=== PATIENT | male | born 1955 | race Caucasian/White ===

== ENCOUNTER → 2021-11-26 09:31 | Outpatient (CLI) | payer MEDICARE, SELFPAY ==
[2021-11-26 19:40] LABS: Add Manual Diff / Slide Review NO; Basophils Absolute Auto 0 /uL (0-100); Basophils Percent Auto 0.8 % (0-2); Eosinophils Absolute Auto 500 /uL (0-450); Eosinophils Percent Auto 11.3 % (2-4); Hematocrit 42.3 % (41-53); Hemoglobin 14.6 g/dL (13.5-17.5); Lymphocytes Absolute Auto 1500 /uL (1100-4500); Lymphocytes Percent Auto 30.2 % (25-40); Mean Corpuscular HGB Conc 34.4 % (30-36); Mean Corpuscular Hemoglobin 31.9 PG (26-34); Mean Corpuscular Volume 92.5 fL (80-100); Monocytes Absolute Auto 500 /uL (0-900); Monocytes Percent Auto 10.2 % (3-14); Neutrophils Absolute Auto 2300 /uL (1500-7000); Neutrophils Percent Auto 47.5 % (50-75); Platelet Count 183 X10^3/uL (150-400); Red Blood Cell Count 4.57 X10^6/uL (4.5-5.9); Red Cell Distribution Width 14.3 % (11.6-14.8); White Blood Cell Count 4.8 X10^3/uL (4.5-11.0)
[2021-11-26 19:43] LABS: Alanine Aminotransferase 19 IU/L (<50); Albumin 4.1 g/dL (3.5-5.0); Albumin Globulin Ratio 1.5 (1.0-2.8); Alkaline Phosphatase 42 U/L (38-126); Aspartate Aminotransferase 30 IU/L (17-59); BUN Creatinine Ratio 14.4 (6-22); Bilirubin Total 1.2 mg/dL (0.2-1.3); Blood Urea Nitrogen 14 mg/dL (9-20); Calcium 9.8 mg/dL (8.4-10.2); Carbon Dioxide 32 mmol/L (22-32); Chloride 104 mmol/L (98-107); Cholesterol 263 mg/dL (140-199); Estimated Glomerular Filt Rate > 60.0 mL/min (>60); Globulin 2.7 g/dL (1.7-4.1); Glucose 103 mg/dL (80-110); HDL Cholesterol 84 mg/dL (40-60); LDL Cholesterol Calculated 165 mg/dL (<100); Sodium 138 mmol/L (137-145); Total Protein 6.8 g/dL (6.3-8.2); Triglycerides 72 mg/dL (35-150)
[2021-11-26 20:31] LABS: HEMOLYSIS < 15 (0-50); Prostate Specific Antigen Scrn 1.87 ng/mL (0.1-4.0)
== END ==
PROVIDERS: PCP Family Medicine; Visit Provider Family Medicine
DX: E78.5 Hyperlipidemia, unspecified (principal); G43.909 Migraine, unspecified, not intractable, without status migrainosus; Z00.00 Encounter for general adult medical examination without abnormal findings; Z12.5 Encounter for screening for malignant neoplasm of prostate
CPT/HCPCS: 80053; 80061; 85025; G0103

== ENCOUNTER → 2022-08-18 07:43 | Outpatient (CLI) | payer MEDICARE, SELFPAY ==
[2022-08-18 21:22] LABS: COVID19 - ORCAS (NP or Nasal) Negative (Negative)
== END ==
PROVIDERS: PCP Family Medicine; Visit Provider Physician Assistant Medical
DX: Z01.812 Encounter for preprocedural laboratory examination (principal); Z20.822 Contact with and (suspected) exposure to COVID-19
CPT/HCPCS: C9803; U0003

== ENCOUNTER 2022-08-19 10:53 | Day surgery (SDC) | payer MEDICARE, SELFPAY ==
--- NOTE | 2022-08-19 | PATH_ITS ---
[facility] Accession Number: [id number] . 01 Material submitted: . PART A: colon - ASCENDING COLON POLYP PART B: colon - TRANSVERSE COLON POLYPS PART C: colon - DESCENDING COLON POLYPS PART D: sigmoid colon - SIGMOID COLON POYLP PART E: rectum - RECTAL POLYP . 01 Diagnosis: A. Ascending Colon Polyp, Biopsy: Tubular adenoma. . B. Transverse Colon Polyps, Biopsies: Tubular adenomas. . C. Descending Colon Polyps, Biopsies: Tubular adenomas. . D. Sigmoid Colon Polyp, Biopsy: Tubular adenoma. . E. Rectal Polyp, Biopsy: Tubular adenoma. [facility] 08/24/2022 1204 Local . 01 Electronically signed: . John Plummer MD, PhD, Pathologist NPI- [id number] . 01 Gross description: . Part A: ASCENDING COLON POLYP: Received in formalin are multiple fragment(s) of rodriguez, soft tissue measuring 0.1 x 0.1 x 0.1 cm to 0.2 x 0.2 x 0.2 cm submitted entirely in 1 cassette(s) Part B: TRANSVERSE COLON POLYPS: Received in formalin are multiple fragment(s) of rodriguez, soft tissue measuring 0.1 x 0.1 x 0.1 cm to 0.4 x 0.2 x 0.1 cm submitted entirely in 1 cassette(s) Part C: DESCENDING COLON POLYPS: Received in formalin are 4 fragment(s) of rodriguez, soft tissue measuring 0.1 x 0.1 x 0.1 cm to 0.3 x 0.3 x 0.2 cm submitted entirely in 1 cassette(s) Part D: SIGMOID COLON POYLP: Received in formalin is 1 fragment(s) of rodriguez, soft tissue measuring 0.7 x 0.4 x 0.3 cm submitted entirely in 1 cassette(s) Part E: RECTAL POLYP: Received in formalin are 2 fragment(s) of rodriguez, soft tissue measuring 0.1 x 0.1 x 0.1 cm in aggregate submitted entirely in 1 cassette(s) /SERGIO 08/23/2022 1931 Local . 01 Pathologist provided ICD-10: D12.2, D12.3, D12.4, D12.5, D12.8 . 01 CPT . 868010, 631800, 310562, [id number], [id number] Specimen Comment: A courtesy copy of this report has been sent to [phone] Performed at: 01 [facility] [address] [address], [place], [place] [id number] MD Rip Romero MD Phone: [phone]
[2022-08-19] MEDS: LACTATED RINGERS 1,000 ML 42 ML IV (11:06)
[2022-08-19 11:22] VITALS: BP 137/89; PULSE 84; RESP 16; TEMP 36.3; O2SAT 99; BMI 25.7
--- NOTE | 2022-08-19 11:55 | PM.HP.1 ---
History of Present Illness History of Present Illness Chief complaint: SCREENING COLONOSCOPY Narrative: Mr. Luz presents today for a screening colonoscopy. He has been pretty healthy but it has been 13 years since his last colonoscopy. He is unsure but he thinks there might have been some polyps but he thinks it was a 10 year follow-up was recommended nonetheless he admits he is overdue. He has no family history of colon cancer and no alarming symptoms. Patient History Medical History (Updated 08/19/22 @ 11:56 by Kavita Lara MD) Cataracts, bilateral Chicken pox Encounter for general adult medical examination w/o abnormal findings Encounter for hepatitis C screening test for low risk patient Encounter for well adult exam without abnormal findings Family history of abdominal aortic aneurysm (AAA) Measles Mumps Screening for prostate cancer Seasonal allergies Surgical History (Updated 11/25/21 @ 21:57 by Kenisha Schulz) Anesthesia History of cataract removal with insertion of prosthetic lens (~2017) History of tonsillectomy (~1960) Family & Social History Family History (Updated 11/25/21 @ 21:58 by Kneisha Schulz) Father History of heart disease Mother Diverticulitis Grandfather History of heart disease Social History: household members spouse Tobacco & Substance use: Smoking Status Never smoker alcohol intake frequency a few times a week Substance Use Type does not use Meds Home Medications and Allergies Home Medications Medication Instructions Recorded Confirmed Type sumatriptan succinate 100 mg tablet See Rx Instructions .Route 02/14/22 08/19/22 Rx .COMPLEX #14 tabs Allergies Allergy/AdvReac Type Severity Reaction Status Date / Time No Known Drug Allergies Allergy Verified 08/19/22 11:19 Exam Vital Signs (past 8 hours): - 08/19/22 11:22 Temperature 97.3 F L Pulse Rate 84 Respiratory Rate 16 Blood Pressure 137/89 Pulse Oximetry 99 Oxygen Delivery Method Room Air Oxygen Delivery Method Room Air Const General: cooperative, healthy appearing and comfortable Eyes General: appearance normal, both eyes and all related structures Resp Effort & Inspection: normal respiratory effort and able to speak in complete sentences Cardio Pulses: radial pulses present GI Palpation: soft and No tender Assessment & Plan Assessment and plan (1) Screen for colon cancer: Status: Acute Plan I discussed the risks and benefits and alternatives of a screening colonoscopy including but not limited to perforation of the colon and incomplete colonoscopy with Mr. Luz he understands he would like to proceed. Time Spent With Patient Critical Care time: I spent a total of [] minutes of critical care time on this patient's care today; this time is exclusive of procedural time.
[2022-08-19 14:00] VITALS: BP 107/71; PULSE 65; RESP 16; TEMP 36.2; O2SAT 100
[2022-08-19 14:05] VITALS: BP 107/73; PULSE 72; RESP 16; O2SAT 100
--- NOTE | 2022-08-19 14:11 | PM.OP.COLON ---
Procedure & Clinicians Study performed: Screening colonoscopy Same procedure as scheduled: Yes Indications: Screening, history of polyps. Surgeon: Kavita Lara Procedure Notes Procedure in detail: Patient was taken to the endoscopy suite and placed in a left lateral decubitus position digital rectal exam was performed. Colonoscope was introduced and advanced to the cecum. A photograph was taken of the appendiceal orifice. And withdrawal time was prolonged due to 7 biopsies. There was 1 small less than 1 cm polyp in the ascending colon which was biopsied and sent as specimen. In the transverse colon as I withdrawal I encountered 3 separate small polyps, each of which was biopsied and sent together as 1 specimen. In the descending colon there were 2 additional small polyps. In the sigmoid colon there was 3rd polyp and in the rectum there was 1 last final polyp each and every 1 of these polyps was less than 1 cm. Findings: polyp(s) Specimen(s): other (1. Ascending colon x1 2. Transverse colon x3 3. Descending colon x2 4. Sigmoid x1 5. Rectal x1) Complications: none Post-procedure Recommendations: Colonoscopy in 3 years Plan for aftercare: Usually with this many even small polyps 3 year follow-up is recommended. We will follow up pathology results.
[2022-08-19 14:15] VITALS: BP 102/77; BP 107/73; PULSE 67; PULSE 73; RESP 16; TEMP 36.6; O2SAT 100; O2SAT 98
[2022-08-19 14:20] VITALS: BP 129/79; PULSE 71; RESP 16; O2SAT 98
[2022-08-19 14:32] VITALS: BP 129/70; PULSE 73; RESP 18; TEMP 36.8; O2SAT 98
== END 2022-08-19 14:41 | disposition home or self-care (01) ==
PROVIDERS: PCP Family Medicine; Referring Provider Surgery; Visit Provider Surgery
PROC: 0DJD8ZZ Inspection of Lower Intestinal Tract, Via Natural or Artificial Opening Endoscopic (ICD-10-PCS; CPT 45378; principal; 2022-08-19 11:45)
DX: Z12.11 Encounter for screening for malignant neoplasm of colon (principal); D12.2 Benign neoplasm of ascending colon; D12.3 Benign neoplasm of transverse colon; D12.4 Benign neoplasm of descending colon; D12.5 Benign neoplasm of sigmoid colon; D12.8 Benign neoplasm of rectum
CPT/HCPCS: 45380; J2704

== ENCOUNTER → 2022-11-15 09:48 | Outpatient (CLI) | payer MEDICARE, SELFPAY ==
[2022-11-15 19:22] LABS: Add Manual Diff / Slide Review NO; Basophils Absolute Auto 100 /uL (0-100); Basophils Percent Auto 1.3 % (0-2); Eosinophils Absolute Auto 100 /uL (0-450); Eosinophils Percent Auto 2.2 % (2-4); Hematocrit 42.7 % (41-53); Hemoglobin 14.5 g/dL (13.5-17.5); Lymphocytes Absolute Auto 1200 /uL (1100-4500); Lymphocytes Percent Auto 26.7 % (25-40); Monocytes Absolute Auto 500 /uL (0-900); Monocytes Percent Auto 10.3 % (3-14); Neutrophils Absolute Auto 2600 /uL (1500-7000); Neutrophils Percent Auto 59.5 % (50-75); Platelet Count 178 X10^3/uL (150-400); Red Blood Cell Count 4.54 X10^6/uL (4.5-5.9); Red Cell Distribution Width 13.9 % (11.6-14.8); White Blood Cell Count 4.4 X10^3/uL (4.5-11.0)
[2022-11-15 19:29] LABS: Alanine Aminotransferase 21 IU/L (<50); Albumin Globulin Ratio 1.5 (1.0-2.8); Alkaline Phosphatase 50 U/L (38-126); Aspartate Aminotransferase 27 IU/L (17-59); BUN Creatinine Ratio 13.4 (6-22); Blood Urea Nitrogen 13 mg/dL (9-20); Calcium 8.9 mg/dL (8.4-10.2); Carbon Dioxide 28 mmol/L (22-32); Chloride 103 mmol/L (98-107); Cholesterol 285 mg/dL (140-199); Estimated Glomerular Filt Rate > 60 mL/min (>60); Globulin 2.7 g/dL (1.7-4.1); Glucose 98 mg/dL (80-110); HDL Cholesterol 84 mg/dL (40-60); HEMOLYSIS < 15 (0-50); LDL Cholesterol Calculated 182 mg/dL (<100); Potassium 4.1 mmol/L (3.4-5.1); Sodium 140 mmol/L (137-145); Total Protein 6.7 g/dL (6.3-8.2); Triglycerides 95 mg/dL (35-150)
[2022-11-15 19:53] LABS: Prostate Specific Antigen 1.83 ng/mL (0.10-4.00)
== END ==
PROVIDERS: PCP Family Medicine; Visit Provider Family Medicine
DX: Z00.00 Encounter for general adult medical examination without abnormal findings (principal); E78.5 Hyperlipidemia, unspecified; G62.9 Polyneuropathy, unspecified
CPT/HCPCS: 80053; 80061; 84153; 85025

== ENCOUNTER → 2023-08-21 08:54 | Outpatient (CLI) | payer MEDICARE, SELFPAY ==
[2023-08-21 19:10] LABS: Add Manual Diff / Slide Review NO; Basophils Absolute Auto 100 /uL (0-100); Basophils Percent Auto 1.3 % (0-2); Eosinophils Absolute Auto 300 /uL (0-450); Eosinophils Percent Auto 4.9 % (2-4); Hematocrit 42.3 % (41-53); Hemoglobin 14.4 g/dL (13.5-17.5); Lymphocytes Absolute Auto 1500 /uL (1100-4500); Mean Corpuscular Hemoglobin 31.5 PG (26-34); Mean Corpuscular Volume 92.6 fL (80-100); Monocytes Absolute Auto 600 /uL (0-900); Monocytes Percent Auto 10.8 % (3-14); Neutrophils Absolute Auto 2900 /uL (1500-7000); Platelet Count 197 X10^3/uL (150-400); Red Blood Cell Count 4.57 X10^6/uL (4.5-5.9); Red Cell Distribution Width 14.3 % (11.6-14.8); White Blood Cell Count 5.4 X10^3/uL (4.5-11.0)
[2023-08-21 19:28] LABS: Cholesterol 264 mg/dL (140-199); HDL Cholesterol 76 mg/dL (40-60); LDL Cholesterol Calculated 157 mg/dL (<100); Triglycerides 153 mg/dL (35-150)
[2023-08-21 19:37] LABS: Alanine Aminotransferase 18 IU/L (<50); Albumin 3.8 g/dL (3.5-5.0); Albumin Globulin Ratio 1.5 (1.0-2.8); Alkaline Phosphatase 55 U/L (38-126); Aspartate Aminotransferase 25 IU/L (17-59); BUN Creatinine Ratio 22.6 (6-22); Bilirubin Total 0.6 mg/dL (0.2-1.3); Blood Urea Nitrogen 19 mg/dL (9-20); C-Reactive Protein Quant < 0.5 mg/dL (<1.0); Calcium 9.3 mg/dL (8.4-10.2); Carbon Dioxide 28 mmol/L (22-32); Chloride 105 mmol/L (98-107); Estimated Glomerular Filt Rate > 60 mL/min (>60); Globulin 2.6 g/dL (1.7-4.1); Glucose 85 mg/dL (80-110); HEMOLYSIS 16 (0-50); Potassium 4.1 mmol/L (3.4-5.1); Sodium 137 mmol/L (137-145); Total Protein 6.4 g/dL (6.3-8.2)
[2023-08-21 19:50] LABS: Erythrocyte Sedimentation Rate 5 MM/HR (0-15)
[2023-08-25 19:48] LABS: ANA Screen, IFA Negative (.)
== END ==
PROVIDERS: PCP Family Medicine; Visit Provider Family Medicine
DX: L30.9 Dermatitis, unspecified (principal); E78.5 Hyperlipidemia, unspecified; G62.9 Polyneuropathy, unspecified; Z82.49 Family history of ischemic heart disease and other diseases of the circulatory system
CPT/HCPCS: 80053; 80061; 85025; 85651; 86038; 86140

== ENCOUNTER → 2024-05-17 09:56 | Outpatient (CLI) | payer MEDICARE, SELFPAY ==
[2024-05-17 19:02] LABS: Cholesterol 253 mg/dL (140-199); Glucose 94 mg/dL (80-110); HDL Cholesterol 76 mg/dL (40-60); LDL Cholesterol Calculated 158 mg/dL (<100); Triglycerides 93 mg/dL (35-150)
[2024-05-17 20:47] LABS: Prostate Specific Antigen Scrn 2.11 ng/mL (0.1-4.0)
[2024-05-20 15:59] LABS: Hep C Virus Ab w/Reflex Quant NEGATIVE s/c (NEGATIVE)
== END ==
PROVIDERS: PCP Family Medicine; Visit Provider Family Medicine
DX: Z12.5 Encounter for screening for malignant neoplasm of prostate (principal); Z13.1 Encounter for screening for diabetes mellitus; Z11.59 Encounter for screening for other viral diseases; Z13.6 Encounter for screening for cardiovascular disorders; Z13.220 Encounter for screening for lipoid disorders
CPT/HCPCS: 80061; 82947; 86803; G0103